=== PATIENT | female | born 1980 | race Caucasian/White ===

== ENCOUNTER → 2024-01-10 | Outpatient (CLI) | payer OTHER, SELFPAY ==
[2024-02-13 07:13] LABS: Hematocrit 38.2 % (37-47); Hemoglobin 12.4 g/dL (12.0-15.0); Mean Corp Hgb Conc 32.5 g/dL (32-36); Mean Corpuscular Hgb 30.3 pg (27.0-32.0); Mean Corpuscular Volume 93.4 fL (81-99); Mean Platelet Vol. 10.5 fl (6.2-12.0); Platelet Count 202 K/mm3 (150-450); RBC Distribution Width CV 12.3 % (11.6-14.6); RBC Distribution Width SD 42.3 fl (35.1-43.9); Red Blood Count 4.09 M/mm3 (4.2-5.4); White Blood Count 4.7 K/mm3 (4.4-11.0)
[2024-02-13 07:18] LABS: Internal QC Validated? YES +Cl - CLEAR BKGD; Record Kit Lot#,Urine Preg HCG0000718086
[2024-02-13 07:21] LABS: Pregnancy, Urine Negative Negative
== END | disposition home or self-care (01) ==
LOC: SDC 06-29 14:08
PROVIDERS: Anesthesiology; PCP Nurse Practitioner Family; Visit Provider Obstetrics & Gynecology
DX: Z01.818 Encounter for other preprocedural examination (principal)
CPT/HCPCS: 81025; 85027

== ENCOUNTER 2024-02-13 06:30 | Day surgery (SDC) | payer OTHER, SELFPAY ==
--- NOTE | 2024-02-06 15:45 | HP.PCM.OB_ITS ---
History and Physical Date of Admission: 02/13/24 Pre-Op History and Physical HPI: The patient is a 43 year old female presenting for pre-operative visit. She is scheduled for Hysteroscopy D&C, with symphion for amenorrhea and Abnormal EMB showing Focal glandular crowding on 02/13/24. Procedure discussed along with risks, benefits and complications. Other alternatives discussed for management. Consent form signed? Yes. But will need to resign as it was past 30 days- will resign day of surgery PAST MEDICAL HISTORY Diagnosis Date ? Anemia ? Anxiety ? Depression PAST SURGICAL HISTORY Procedure Laterality Date ? TONSILLECTOMY HX Current Outpatient Medications Medication Sig Dispense Refill ? estradiol (ESTRACE) 1 mg tablet Take 1 tablet by mouth once daily. 30 tablet 2 ? busPIRone (BUSPAR) 5 mg tablet Take 1 tablet by mouth once daily. 30 tablet 2 ? progesterone micronized (PROMETRIUM) 100 mg capsule Take 1 capsule by mouth once daily. 30 Each 11 ? Lactobacillus acidophilus (FLORAJEN ACIDOPHILUS) 20 billion cell capsule Take 1 capsule by mouth once daily. 30 capsule 0 ? clobetasol (TEMOVATE) 0.05 % ointment Apply thin layer to affected area BID x 4wks, then daily for 4 wks, then every other day for 4 weeks then PRN for symptoms 60 g 3 ? citalopram (CELEXA) 40 mg tablet Take 1 tablet by mouth once daily. 30 tablet 5 ? ibuprofen (MOTRIN) 600 mg tablet Take 1 tablet by mouth every 6 hours as needed for Pain. 20 tablet 0 No current facility-administered medications for this visit. ALLERGIES: Latex and Shellfish Containing Products PERSONAL HISTORY: Social History Tobacco Use ? Smoking status: Former Years: 20 Types: Cigarettes ? Smokeless tobacco: Never Vaping Use ? Vaping Use: Never used Substance Use Topics ? Alcohol use: No ? Drug use: No FAMILY HISTORY: FAMILY HISTORY Problem Relation Age of Onset ? Hypertension Mother ? Hyperlipidemia Mother ? None Father ? Hypertension Maternal Grandmother ? Stroke Maternal Grandmother ? Hypertension Maternal Grandfather ? Developmental problem Maternal Grandfather ? COPD Maternal Grandfather ? Hypertension Paternal Grandmother ? Hypertension Paternal Grandfather REVIEW OF SYMPTOMS: negative except as noted above PHYSICAL EXAMINATION: VITALS: Last menstrual period 09/19/2015. GENERAL: The patient is well nourished, well hydrated in no acute distress. , The patient is oriented to time, place, and person. NECK: full range of motion IMPRESSION: 42yo with Amenorrhea and abnormal EMB- focal glandular crowding PLAN: hysteroscopy, D&C with symphion Pt has been counseled on risks/benefits and alternatives of surgery including but not limited to anesthesia, bleeding, infection, uterine perforation with ball bsequent injury to pelvic structures including bowel, bladder, ureters and vessels. Pt wishes to proceed with surgery at this time. Pt will resign consent day of surgery I have reviewed and updated past medical and surgical history, medications and allergies Lacey Mcgee MD
[2024-02-13 06:58] VITALS: BP 116/78; PULSE 68; RESP 18; TEMP 36.4; O2SAT 99; BMI 23.3
[2024-02-13] MEDS: Lactated Ringers 1,000 ML 15 ML IV (07:12)
--- NOTE | 2024-02-13 08:00 | EMB_PTH ---
PATIENT: EMIGDIO NIEVES LOC: [facility] [place] U#:[id number] AGE/SX: 43/F ROOM: RE02/13/[address]: Dr. Lacey Medellin, MDDOB: 1980 BED: DIS: 02/13/2024 SPEC #: [id number] RECD: 02/13/24 09:38 STATUS: ADAN MCKEON #: [id number] [place]: 02/13/24 08:[address]: Lacey Medellin DEPT: SURGICAL PATHOLOGY RECD BY: Sarina Liao ENTERED: 02/13/24 13:26 SP TYPE: ENDOM BX/C OT DR: Sintia Bartlett, RAAD Tissues: Endometrium, NOS Procedures: Surgery Specimen Level IV HEADER OPERATION: Hysteroscopy, D&C PRE-OP DIAGNOSIS: Amenorrhea, abnormal EMB TISSUE SUBMITTED: Endometrial Curettings MICROSCOPIC DIAGNOSIS Endometrial, Curettings: Scant strips of proliferative endometrium. Rare fragments of benign superficial endocervix. /mr 02/14/24 MICROSCOPIC DESCRIPTION Slides are reviewed. GROSS DESCRIPTION Received in fixative is one container labeled with the patient's name and designated Endometrial Curettings. The specimen consists of multiple irregular fragments of hemorrhagic soft tissue mixed with mucoid tissue that in aggregate measure 2.5 x 2.0 x 0.1 cm. The specimen is totally submitted in one cassette. / 02/13/24 TC:5 CPT:47130
--- NOTE | 2024-02-13 08:00 | DCINST_ITS ---
Discharge Instructions Diet Discharge Diet: No restrictions Activity May resume sexual activity in: 1 week Dressing / Incision Call your doctor if you observe: Fever of 101 or Higher, Inability to urinate, Using more than 1 pad per hour and Uncontrolled pain Follow Up Care Please Follow Up With: Lacey Mcgee MD When: 1-2 weeks post OP if you need an appointment please call [phone] Test Results: Test results from this visit will be discussed in further detail at your follow- up appointment, if applicable. Discharge Plan Admission Attending Provider: Lacey Mcgee Primary Care Provider: Sintia Bartlett NP Discharge Orders/Prescriptions Prescriptions: No Action alprazolam 0.25 mg tablet 0.25 mg PO DAILY PRN (Reason: anxiety) buspirone 5 mg tablet 5 mg PO DAILY citalopram 40 mg tablet 40 mg PO QHS estradiol 0.5 mg tablet 1 mg PO QHS progesterone micronized 100 mg capsule 100 mg PO QHS multivit with min-folic acid [Adult Multivitamin Gummies] 200 mcg tablet,chewable 1 tab PO DAILY magnesium 100 mg tablet 400 mg PO DAILY cholecalciferol (vitamin D3) [Vitamin D3] 50 mcg (2,000 unit) capsule 50 mcg PO DAILY calcium 500 mg tablet 500 mg PO DAILY docusate calcium 240 mg capsule 240 mg PO DAILY Acidophilus Capsule 100 mmu cells PO DAILY Disposition Disposition (needs filled in before D/C Order can be placed): Home, Self Care
--- NOTE | 2024-02-13 08:24 | OP.PCM_ITS ---
Report of Operation Date of Procedure: 02/13/24 Pre-Operative Diagnosis: amenorrhea, Abnormal EMB-showing focal glandular crowd ing. Post-Operative Diagnosis: same Surgery/Procedure Performed:: Hysteroscopy, D&C Description of Surgical Findings:: Atrophic appearing endometrium, Surgeon: Lacey Mcgee [employer] pilot: None Type of Anesthesia: MAC Specimen's removed: endometrial curettings Estimated Blood Loss (mL): 5cc Fluids Replaced: 700 Description of Procedure: Informed consent was obtained the patient was taken the operating room she was placed in supine position. She was given anesthesia. She was then placed in the [facility] where she was prepped and draped in the normal sterile fashion. bladder drained prior to start of procedure. this time the weighted speculum was placed in the posterior fornix of vagina. Single-tooth tenaculum was used to gently grasp the anterior lip the cervix. At this time the uterine cavity was sounded to approximately 7 cm. Gentle dilatation was performed once adequate dilatation of the cervix was achieved the hysteroscope using normal saline as a distention medium was placed. Tubal ostia visualized. endometrium appeared atrophic, no lesion noted. gentle sharp curettage performed, minimal tissue obtained. Tissue will be sent to pathology for evaluation. Tenaculum removed. Good hemostasis. Instrument, lap count correct x 2. Fluid deficit 50cc. Vaginal Sweep was negative. Grafts/Implants Used: none Procedure Start Time: 08:17 Procedure Stop Time: :23 Complications none Admit VTE Documentation VTE Present on Admission: Yes VTE Mechan Device Prophylaxis: SCD's VTE Pharm Prophylaxis ordered?: No Reason prophylaxis not ordered:: Procedure Not Indicated
[2024-02-13 08:35] VITALS: BP 101/75; BP 116/78; PULSE 68; RESP 16; TEMP 36.2; O2SAT 97
[2024-02-13 08:40] VITALS: BP 105/65; BP 116/78; PULSE 64; RESP 18; O2SAT 98
[2024-02-13 08:45] VITALS: BP 109/66; BP 116/78; PULSE 64; RESP 18; TEMP 36.2; O2SAT 99
[2024-02-13 09:13] VITALS: BP 116/78
== END 2024-02-13 09:26 | disposition home or self-care (01) ==
LOC: SDC 06:37 → AC 06:39
PROVIDERS: PCP Nurse Practitioner Family; Referring Provider Obstetrics & Gynecology; Visit Provider Obstetrics & Gynecology
PROC: 0UB98ZZ Excision of Uterus, Via Natural or Artificial Opening Endoscopic (ICD-10-PCS; CPT 58558; principal; 2024-02-13 07:45)
DX: N85.8 Other specified noninflammatory disorders of uterus (principal); N91.2 Amenorrhea, unspecified; Z87.891 Personal history of nicotine dependence
CPT/HCPCS: 58558; 00952; 88305; J7120; J2405